=== PATIENT | female | born 1990 | race African-American/Black ===

== ENCOUNTER 2016-12-26 16:31 | Emergency (ER) | payer OTHER ==
[~2016-12-26] VITALS: Ht 172.7 cm; Wt 71.0 kg
[2016-12-26] MEDS ORDERED: BUPR75 PO (17:28)
[2016-12-26] MEDS ORDERED: ACETAMINOPHEN 325 MG TABLET PO ONE (18:00)
[2016-12-26 18:30] VITALS: BP 129/79
== END 2016-12-26 19:01 | disposition home or self-care (01) ==
LOC: EMS 16:33
DX: O9A.211 Injury, poisoning and certain other consequences of external causes complicating pregnancy, first trimester (principal); S00.83XA Contusion of other part of head, initial encounter; Z3A.01 Less than 8 weeks gestation of pregnancy; Y04.2XXA Assault by strike against or bumped into by another person, initial encounter; Y93.89 Activity, other specified; Y92.89 Other specified places as the place of occurrence of the external cause; Y99.8 Other external cause status
CPT/HCPCS: 99283